=== PATIENT | female | born 1945 | race Caucasian/White ===

== ENCOUNTER 2017-03-08 14:38 | Emergency (ER) | payer MEDICARE ==
[~2017-03-08] VITALS: Ht 165.1 cm; Wt 65.8 kg
[2017-03-08 14:57] VITALS: BP 150/95
== END 2017-03-08 16:16 | disposition home or self-care (01) ==
LOC: ER 14:44
DX: R05 Cough (principal); R09.82 Postnasal drip
CPT/HCPCS: 71010; 99283; A4606; Z7610

== ENCOUNTER 2017-08-10 20:06 | Emergency (ER) | payer MEDICARE, BC ==
[~2017-08-10] VITALS: Ht 165.1 cm; Wt 65.8 kg
[2017-08-10 20:17] VITALS: BP 148/66
== END 2017-08-10 20:39 | disposition home or self-care (01) ==
LOC: ER 20:08
DX: J06.9 Acute upper respiratory infection, unspecified (principal)
CPT/HCPCS: 99283; A4606; Z7610

== ENCOUNTER 2018-11-29 14:13 | Emergency (ER) | payer MEDICARE ==
[~2018-11-29] VITALS: Ht 165.1 cm; Wt 72.6 kg
[2018-11-29] MEDS: IBUPROFEN 600 MG TABLET PO ONE (14:59)
[2018-11-29] MEDS ORDERED: IBUPROFEN 600 MG TABLET PO ONE (14:59)
--- NOTE | 2018-11-29 15:33 | NUR ---
pt came from home c/p chest pain, a/ox4, follows commands, ST, sat well on 2L 02, ECG done, v/s stable, family at the bedside.
--- NOTE | 2018-11-29 16:12 | NUR ---
no chest pain verbalized, alert, SR, c/o L leg pain, negative for DVT, v/s stable.
[2018-11-29 17:37] VITALS: BP 119/68
--- NOTE | 2018-11-29 17:38 | NUR ---
Patient discharged to home in stable condition. Written and verbal after care instructions given. Patient verbalizes understanding of instruction.
== END 2018-11-29 17:49 | disposition home or self-care (01) ==
LOC: ER 14:16
DX: M54.42 Lumbago with sciatica, left side (principal); Z90.89 Acquired absence of other organs
CPT/HCPCS: 72110-TC; 93971-TC

== ENCOUNTER 2023-04-23 15:15 | Emergency (ER) | payer MEDICARE ==
[~2023-04-23] VITALS: Ht 165.1 cm; Wt 68.0 kg
[2023-04-23] MEDS ORDERED: ACETAMINOPHEN 325 MG TABLET PO ONE (16:30)
[2023-04-23] MEDS ORDERED: ACETAMINOPHEN 325 MG TABLET ONE (16:40)
[2023-04-23] MEDS ORDERED: CEPH250S2 PO ×2 (16:43→16:52)
[2023-04-23] MEDS ORDERED: IBUPROFEN 400 MG TABLET ONE (16:44)
[2023-04-23] MEDS ORDERED: IBUP-1955 PO (16:52)
[2023-04-23] MEDS ORDERED: IBUPROFEN 400 MG TABLET PO ONE (17:00)
[2023-04-23 17:08] VITALS: BP 131/78; TEMP 98.4; O2SAT 97
== END 2023-04-23 17:08 | disposition home or self-care (01) ==
LOC: ER 15:30
DX: L03.032 Cellulitis of left toe (principal); Z90.89 Acquired absence of other organs
CPT/HCPCS: 73660-TC; 82962-TC